=== PATIENT | female | born 1950 | race Caucasian/White ===

== ENCOUNTER 2019-12-19 10:53 | Outpatient (CLI) | payer OTHER | END 2019-12-19 10:54 | disposition home or self-care (01) | LOC: COV 10:53 | PROVIDERS: ATTEND Family Medicine | DX: R53.83 Other fatigue (principal); R68.83 Chills (without fever); J02.9 Acute pharyngitis, unspecified; J34.89 Other specified disorders of nose and nasal sinuses; R11.0 Nausea; Z20.828 Contact with and (suspected) exposure to other viral communicable diseases ==

== ENCOUNTER 2023-03-19 10:50 | Outpatient (CLI) | payer MEDICARE ==
--- NOTE | 2023-03-19 19:26 | DEXA Report ---
PROCEDURE: Dexa Spine and/or Hip INDICATIONS: OSTEOPENIA TECHNIQUE: Dual energy x-ray absorptiometry (DEXA) was performed in the regions detailed below. COMPARISON: None. FINDINGS: Lumbar Spine: Bone Mineral Density 0.995 g/cm/cm,T score -1.5. Osteopenia Left Femoral Neck: Bone Mineral Density 0.816 g/cm/cm, T score -1.6. Osteopenia Left Hip: Bone Mineral Density 0.908 g/cm/cm,T score -0.8. Normal (T score greater or equal to -1.0: NORMAL) (T score from -1.1 to -2.4: OSTEOPENIA) (T score less than or equal to -2.5 to: OSTEOPOROSIS) IMPRESSION: Osteopenia Patients with diagnosis of osteoporosis or osteopenia should have regular bone mineral density assess ment. For those eligible for Medicare, routine testing is allowed once every 2 years. Testing frequ ency can be increased for patients who have rapidly progressing disease or for those who are receivin g medical therapy to restore bone mass. Reviewed by: Mikie Cornejo MD on 03/19/2023 6:24 PM NELY Approved by: Mikie Cornejo MD on 03/19/2023 6:24 PM NELY Station ID: [id number]
== END 2023-03-19 10:51 | disposition home or self-care (01) ==
LOC: DI 10:50
PROVIDERS: ATTEND Naturopath
DX: M85.89 Other specified disorders of bone density and structure, multiple sites (principal)

== ENCOUNTER 2024-02-10 22:13 | Outpatient (CLI) | payer MEDICARE ==
--- NOTE | 2024-02-10 23:23 | Ultrasound Report ---
PROCEDURE: Pelvic Complete INDICATIONS: POST MENOPAUSAL BLEEDING TECHNIQUE: Real-time transabdominal scanning was performed of the pelvic organs, with image documentation. COMPARISON: None. FINDINGS: Uterus: Uterus is anteverted and normal in size at 10 x 7 x 4.8 cm. The myometrium is homogeneous. The endometrium measures 8 mm in combined thickness. Echogenic focus within the endometrial canal m easuring 1.2 x 0.5 cm. There is free fluid in the endometrial canal. Uterine fibroids. For example: -Superior midline posterior intramural/submucosal fibroid measuring 2.5 x 2.1 x 1.9 cm. -Inferior midline posterior intramural fibroid measuring 2.1 x 2.1 x 1.9 cm. -Left anterior subserosal fibroid measuring 2 x 1.8 x 1.7 cm. Ovaries: The right ovary measures 2.1 x 2 x 1 cm, with a calculated ovarian volume of 2 cc. The lef t ovary measures 2.1 x 1.5 x 1.3 cm, with a calculated ovarian volume of 2 cc. The ovaries have a no rmal sonographic appearance. Less than 12 follicles can be seen in each ovary. No adnexal masses ar e seen. No cystic lesions measuring greater than 3 cm. Other: No free pelvic fluid. IMPRESSION: 1. Endometrium measures 8 mm in this postmenopausal patient with bleeding. Recommend endometrial biop sy if not performed. 2. Possible endometrial polyp measuring 1.2 cm. Clot or fibroids are in the differential diagnosis. 3. Multiple uterine fibroids. 4. No significant ovarian cysts. Reviewed by: Reji Jaramillo MD on 02/10/2024 11:22 PM PDT Approved by: Reji Jaramillo MD on 02/10/2024 11:22 PM PDT Station ID: [id number]
== END 2024-02-10 22:14 | disposition home or self-care (01) ==
LOC: DI 22:13
PROVIDERS: ATTEND Physician Assistant Medical
DX: N95.0 Postmenopausal bleeding (principal); D25.1 Intramural leiomyoma of uterus; D25.0 Submucous leiomyoma of uterus; D25.2 Subserosal leiomyoma of uterus; R93.89 Abnormal findings on diagnostic imaging of other specified body structures